=== PATIENT | female | born 1980 | race American Indian/Alaskan Native ===

== ENCOUNTER 2019-08-13 14:16 | Emergency (ER) | payer OTHER, SELFPAY ==
[2019-08-13 14:17] VITALS: BP 146/66; PULSE 120; RESP 20; TEMP 36.6; O2SAT 98; BMI 14.5
[2019-08-13 14:35] LABS: Microscopic, Urine URINE MICROSCOPIC (MICROSCOPIC)
[2019-08-13 14:37] LABS: Appearance,Urine CLEAR (Clear); Bilirubin,Urine Negative (Negative); Blood, Urine Negative (Negative); Color,Urine YELLOW (Yellow); Glucose,Urine (UA) Negative (Negative); Ketones,Urine Negative (Negative); Leukocyte Esterase,Urine Negative (Negative); Nitrate,Urine Negative (Negative); Protein,Urine Negative (Negative); Urobilinogen,Urine 0.2 EU/dl (0.2)
--- NOTE | 2019-08-13 14:38 | CT_ITS ---
Procedure: CT ABDOMEN PELVIS W CON Patient Age:39Y CLINICAL INDICATION: abd pain, bloody stool Post colectomy. Small bowel loops in the pelvis near the anastomosis are mildly distended with moderate air-fluid levels. Non-specific. The pattern does not suggest a high-grade obstruction. No bowel wall thickening or pneumatosis no free fluid or free air. COMPARISON: No exams were available for comparison TECHNIQUE: IV contrast utilized: Seventy-five cc Optiray 350 No oral contrast. Helical axial images obtained with sagittal and coronal reformats. All CT scans at the facility use one or more dose reduction, viz: automated exposure control, ma/kV adjustment per patient size (including targeted exams where dose is matched to indication, i.e. head), or iterative reconstruction technique. FINDINGS: Lower thorax: No acute finding lungs clear. Heart normal size. ABDOMEN:Very thin patient of which crowds structures. The oral contrast may be helpful if subsequent scan performed Liver: 11 mm x 8 mm the cyst anterior left lobe liver no significant appearing masses or biliary dilatation. Gallbladder: Surgically removed common duct normal no intrahepatic biliary ductal dilatation either. Pancreas: No masses or peripancreatic fluid collections. Spleen: Borderline to perhaps splenomegaly. Spleen measuring nearly 13 cm in length maximally Adrenals: unremarkable. Kidneys/ureters: unremarkable. Normal enhancement with no calculi nor obstruction either kidney. PELVIS: Uterus is been removed.. No significant adnexal masses but Bladder: Mildly distended but no obvious stones or masses. ----GI tract Stomach unremarkable. Patient with colectomy. I believe the rectum and I believe portion of sigmoid likely remains with anastomosis seen just above the anterior aspect of the urinary bladder. moderate small bowel dilatation leading to the anastomosis with air-fluid level here within dilated small bowel.. Also note generous air-fluid level and liquid stool within rectum reflecting liquid stool/diarrhea. Prior studies be very helpful to better evaluate the patient's baseline appearance as there may be some chronic dilatation of the distal small bowel postsurgical. However on today's study of question and at could not exclude some partial obstruction near the anastomosis or distal most small bowel with this current appearance.. Follow-up with the patient's colorectal surgeon likely be most helpful particularly particularly of ongoing symptoms.. If symptoms do persist or patient returns you may consider utilizing Gastroview oral contrast to better delineate small-bowel versus the remaining large bowel. A retrograde Gastroview enema of of also may be of benefit down the road to further evaluate the anastomosis but this would be best directed by and after colorectal surgeon input The No bowel wall thickening or pneumatosis Peritoneum: No abnormal fluid collections. No obvious inflammatory changes. No free air. Lymph nodes: No enlarged lymph nodes apparent. Vasculature: No significant findings in this young patient Bones: Unremarkable the the IMPRESSION: Patient is post colectomy. What appears to be small bowel anastomosis with sigmoid is seen at the lower anterior pelvis just above the bladder. There is small bowel dilatation leading to this anastomosis. With generous air-fluid level at these dilated distal small bowel loops as well as at rectosigmoid the latter-reflecting loose stool/diarrhea. Findings could reflect a partial obstruction near the anastomosis/or at the distal small bowel here at the pelvis. prior studies would be helpful. I symptoms persist or progressed, suggest patient follow-up with colorectal surgeon shlomo
--- NOTE | 2019-08-13 14:39 | [facility].EDABDPAI ---
ED Disposition Clinical Impression: Rectal bleed Disposition: Home, Self-Care Condition on Discharge: Good Instructions: DI for Rectal Bleeding Additional Instructions: It is important that you follow-up with Dr. Dye as soon as possible, preferably within the next 2 days. Return immediately to the closest emergency department for any acute worsening of symptoms. - Critical Care Critical Care Time: No Attestation: On , the high probability of a clinically significant, sudden or life threatening deterioration of the following system(s) required my full and direct attention, intervention and personal management. The time I documented below is in addition to time spent performing reported procedures but includes the following listed in this critical care notation. Medical Decision Making - Medical Records Medical records reviewed: Yes: I reviewed the patient's medical records. - Steve Inquiry Pt receiving controlled substance: No Vital Signs: 08/13/19 14:17 08/13/19 15:52 Temperature 97.8 F Temperature Source Oral Pulse Rate [Left Radial] 120 H 76 Respiratory Rate 20 Blood Pressure [Right Arm] 146/66 H 115/72 Blood Pressure Mean [Right Arm] 92 86 Blood Pressure Source [Right Arm] Automatic Cuff Blood Pressure Position [Right Arm] Sitting Sitting 02 Sat by Pulse Oximetry 98 97 Oxygen Delivery Method Room Air - Lab Data Lab Results 08/13/19 14:25: Urine Color Yellow, Urine Appearance Clear, Urine pH 6.0, Ur Specific [place] 1.010, Urine Protein Negative, Urine Glucose (UA) Negative, Urine Ketones Negative, Urine Blood Negative, Urine Nitrate Negative, Urine Bilirubin Negative, Urine Urobilinogen 0.2, Ur Leukocyte Esterase Negative, Urine RBC 5-10, Urine WBC 3-5, Ur Squamous Epith Cells 5-10, Urine Bacteria None 08/13/19 14:45: WBC 8.5, RBC 4.90, Hgb 17.2 H, Hct 49.9 H, MCV 101.9 H, MCH 35.1 H, MCHC 34.5, RDW 13.3, Plt Count 207, MPV 8.0, Neut % (Auto) 65.3, Lymph % (Auto) 28.0, [place] % (Auto) 3.5, Eos % (Auto) 2.5, Baso % (Auto) 0.7, Neut # (Auto) 5.5, Lymph # (Auto) 2.4, Bath # (Auto) 0.3, Eos # (Auto) 0.2, Baso # (Auto) 0.1 08/13/19 14:45: Sodium 135 L, Potassium 4.0, Chloride 104, Carbon Dioxide 25, Anion Gap 10.0, BUN 6 L, Creatinine 0.80, Estimated Creat Clear 61, Estimated GFR 80, Est GFR ( Amer) 97, Glucose 103 H, Calcium 9.3, Total Bilirubin 0.9, AST 33, ALT 12, Alkaline Phosphatase 80, Total Protein 7.4, Albumin 4.7, Globulin 2.7, Albumin/Globulin Ratio 1.7 08/13/19 15:10: Stool Occult Blood Negative 08/13/19 15:26: Lactate 1.0 Result diagrams: 08/13/19 14:45 08/13/19 14:45 Orders (Tests/Meds): ED MEDICATIONS Discontinued Medications Generic Name Dose Route Start Last Admin Trade Name Freq PRN Reason Stop Dose Admin Ioversol 75 ml 08/13/19 15:25 08/13/19 15:25 Rad-Optiray 350 100ml Vial IV 08/13/19 15:26 75 ml ONCE ONE Administration Protocol Sodium Chloride 10 ml 08/13/19 15:25 08/13/19 15:25 Rad-Saline Flush 10ml Syringe IV 08/13/19 15:26 10 ml ONCE ONE Administration ORDERS Category Date Time Status CT abdomen pelvis w con Stat Cat Scan 08/13/19 14:38 Taken - CT Data CT Scan: Abdomen, Pelvis Time Received: 15:[address] Reviewed: Yes: I have reviewed the patient's CT results Findings Narrative: Post colectomy, no obstruction, no bowel wall thickening or pneumatosis, no free fluid or free air. Medical Decision Narrative: Initially tachycardic and this improved to the 70s with no intervention here. She was very anxious on initial arrival. Blood pressure remained stable as well, hemoglobin is 17, no need for acute transfusion. CT scan shows no acute process with no bowel obstruction, free air, other acute intra-abdominal process. She has no hematochezia while here. Rectal exam unremarkable with no palpable internal hemorrhoids, no thrombosed external hemorrhoids. Hemoccult negative. Recommended follow-up with GI doctor within t
[2019-08-13 14:56] LABS: Basophils # 0.1 K/mm3 (0-0.2); Basophils % 0.7 % (0.1-2.0); Eosinophils # 0.2 K/mm3 (0.0-0.4); Eosinophils % 2.5 % (0.1-12.0); Hematocrit 49.9 % (37.0-47.0); Hemoglobin 17.2 g/dL (12.2-16.2); Lymphocytes # 2.4 K/mm3 (0.7-4.5); Mean Corpuscular HGB Conc 34.5 g/dL (31.8-35.4); Mean Corpuscular Hemoglobin 35.1 pg (27.0-31.2); Mean Corpuscular Volume 101.9 fl (81-99); Monocytes # 0.3 K/mm3 (0.1-1.0); Monocytes % 3.5 % (1.7-9.3); Neutrophils # 5.5 K/mm3 (1.8-7.8); Neutrophils % 65.3 % (37.0-80.0); Platelet Count 207 K/mm3 (142-424); Red Cell Distribution Width 13.3 % (11.5-17.5); White Blood Count 8.5 K/mm3 (4.8-10.8)
[2019-08-13 15:04] LABS: Chloride 104 mmol/L (98-107); Sodium 135 mmol/L (136-145)
[2019-08-13 15:07] LABS: Alanine Aminotransferase 12 U/L (12-78); Albumin Level 4.7 g/dl (3.5-5.0); Albumin/Globulin Ratio 1.7 (1.1-1.8); Alkaline Phosphatase 80 U/L (38-126); Aspartate Amino Transferase 33 U/L (14-36); Bilirubin,Total 0.9 mg/dl (0.2-1.3); Blood Urea Nitrogen 6 mg/dl (7-17); Calcium 9.3 mg/dl (8.4-10.2); Carbon Dioxide 25 mmol/L (22.0-30.0); Creatinine Clearance Estimated 61 mL/min (50-200); Estimated Glomerular Filt Rate 80 ml/min (>60); GFR (African American) 97 ML/MIN (>60); Globulin 2.7 g/dL (1.3-3.2); Glucose 103 mg/dl (74-100); Total Protein,Serum 7.4 g/dl (6.3-8.2)
--- NOTE | 2019-08-13 15:14 | PC.NURSE ---
pt going to CT , lab called to draw lactic
[2019-08-13 15:52] VITALS: BP 115/72; PULSE 76; O2SAT 97
--- NOTE | 2019-08-13 16:03 | PC.NURSE ---
sister at bedside pt offers no c/o at present
[2019-08-13 16:05] LABS: Occult Blood,Stool Negative (Negative)
[2019-08-13 16:39] VITALS: BP 110/73; PULSE 76; RESP 18; TEMP 36.6; O2SAT 100
== END 2019-08-13 16:40 | disposition home or self-care (01) ==
PROVIDERS: Emergency Provider Emergency Medicine; PCP Physician Assistant
DX: K62.5 Hemorrhage of anus and rectum (principal); Z90.49 Acquired absence of other specified parts of digestive tract; Z90.79 Acquired absence of other genital organ(s); Z88.8 Allergy status to other drugs, medicaments and biological substances
CPT/HCPCS: 36415; 74177; 80053; 81001; 82272; 83605; 85025; 99283; G0328; Q9967